=== PATIENT | female | born 1945 | race Hispanic/Latino ===

== ENCOUNTER 2023-08-02 10:25 | Emergency (ER) | payer OTHER, MEDICARE, BC | END 2023-08-02 10:50 | disposition home or self-care (01) | LOC: BURERS 10:25 | DX: I10 Essential (primary) hypertension (principal); F43.0 Acute stress reaction; V49.9XXA Car occupant (driver) (passenger) injured in unspecified traffic accident, initial encounter | CPT/HCPCS: 99284 ==